=== PATIENT | male | born 1995 | race Caucasian/White ===

== ENCOUNTER 2019-06-07 22:26 | Emergency (ER) | payer OTHER ==
[~2019-06-07] VITALS: Ht 180.3 cm; Wt 90.7 kg
[2019-06-07] MEDS ORDERED: PAROXETINE7.5 MG PO (22:49)
== END 2019-06-08 00:45 | disposition home or self-care (01) ==
LOC: ED 22:26
DX: S02.2XXA Fracture of nasal bones, initial encounter for closed fracture (principal); Y04.8XXA Assault by other bodily force, initial encounter; J45.909 Unspecified asthma, uncomplicated; Z87.891 Personal history of nicotine dependence; Z79.899 Other long term (current) drug therapy
CPT/HCPCS: 70450; 70486; 99283-25; A9270